=== PATIENT | male | born 1975 | race Caucasian/White ===

== ENCOUNTER 2024-05-17 18:14 | Emergency (ER) | payer OTHER ==
[2024-05-17] MEDS ORDERED: dexAMETHasone 4 MG/ML VIAL ONE (20:23)
[2024-05-17] MEDS ORDERED: KETOROLAC 30 MG/ML INJ ONE (20:23)
[2024-05-17] MEDS ORDERED: DIAZEPAM 5 MG TABLET ONE (20:23)
[2024-05-17] MEDS ORDERED: KETAMINE HCL IN 0.9 % NACL 50 MG/5 ML SYRINGE IV ONE (20:23)
[2024-05-17] MEDS ORDERED: NA CHLORIDE 0.9% 0 ML ONE (20:24)
[2024-05-17] MEDS ORDERED: NA CHLORIDE 0.9% 50 ML ONE (20:24)
[2024-05-17] MEDS ORDERED: NA CHLORIDE 0.9% 250 ML ONE (20:36)
[2024-05-17] MEDS ORDERED: dexAMETHasone 10 MG/ML VIAL ONE (20:40)
--- NOTE | 2024-05-17 21:43 | ER ---
Nurse's Notes [facility] Name: Stephan Carrasco Age: 49 yrs Sex: Male : 1975 Arrival Date: 05/17/2024 Time: 18:14 Bed 2 Private MD: Diagnosis: Back pain Presentation: 05/17 18:17 Chief complaint: EMS states: FELL YESTERDAY HIT HEAD. COMPLAINS OF 8/10 SPINE PAIN THAT db RADIATES ALL OVER HIS BODY PICKED UP FROM [facility] DID NOT AGREE WITH PHYSICIAN THERE. LAW ENFORCEMENT WAS ON SCENE UPON EMS ARRIVAL. EMS GAVE TORADOL 15 MG IV, ZOFRAN 4 MG IV. Coronavirus screen: Client denies travel out of the [place] in the last 14 days. At this time, the client does not indicate any symptoms associated with coronavirus-19. Ebola Screen: Patient negative for fever greater than or equal to 101.5 degrees Fahrenheit, and additional compatible Ebola Virus Disease symptoms Patient denies exposure to infectious person. Patient denies travel to an Ebola-affected area in the 21 days before illness onset. No symptoms or risks identified at this time. Initial Sepsis Screen: Does the patient meet any 2 criteria? No. Patient's initial sepsis screen is negative. Does the patient have a suspected source of infection? No. Patient's initial sepsis screen is negative. Risk Assessment: Do you want to hurt yourself or someone else? Patient reports no desire to harm self or others. Onset of symptoms was May 17, 2024. 18:17 Method Of Arrival: EMS: [facility] db 18:17 Acuity: NITIN 3 db 18:17 Care prior to arrival: Medication(s) given: zofran 4 mg, TORADOL 15 MG IV initiated. 20 db GA, in the left antecubital area. 22:32 Care prior to arrival: None. Mechanism of Injury: hit head on table. Trauma event mt4 details: Injury occurred in the [facility]. Trauma Activation: Physician: ED Physician; Name: WALLACE; Notified At: ; Arrived At: Physician: General Surgeon; Name: ; Notified At: ; Arrived At: Physician: Radiology; Name: ; Notified At: ; Arrived At: Physician: Respiratory; Name: ; Notified At: ; Arrived At: Physician: Lab; Name: ; Notified At: ; Arrived At: Historical: - Allergies: 18:21 Codeine; db - PMHx: 18:22 ARACHNOIDITIS; db - Immunization history:: Adult Immunizations unknown. - Infectious Disease History:: Denies. - Immunization history: Last tetanus immunization: unknown. - Social history:: Smoking status: Patient denies any tobacco usage or history of. Patient/guardian denies using. Screenin:00 [facility] ED Fall Risk Assessment (Adult) History of falling in the last 3 months, mt4 including since admission Yes- single mechanical fall (1 pt) Confusion or Disorientation No (0 pts) Intoxicated or Sedated No (0 pts) Impaired Gait Yes (1 pt) Mobility Assist Device Used No (0 pt) Altered Elimination No (0 pt) Score/Fall Risk Level 3 or more points = High Risk. Abuse screen: Denies injuries from another. Nutritional screening: No deficits noted. Tuberculosis screening: No symptoms or risk factors identified. Exposure risk/Travel Screening: None identified. Primary Survey: 22:31 NO uncontrolled hemorrhage observed. Breathing/Chest: Spontaneous respiratory effort, mt4 equal unlabored respirations, breath sounds clear bilaterally, regular pattern, symmetrical chest rise and fall. Circulation: No external hemorrhage present. Regular and strong central pulse, skin warm/dry/normal color. Disability Pupils are equal, round, reactive to light and accommodation. Client is alert. Exposure/Environment: There is no evidence of uncontrolled external bleeding. No obvious injuries are noted at this time. Reassessment Alertness and Airway: Awake and alert. The airway is patent. Breathing: Respiratory effort Unlabored Breath sounds Clear Respiratory pattern Regular Chest inspection Symmetrical Circulation: No external hemorrhage noted. Regular and strong central pulse, skin warm/dry/normal color. Disability: Pupils Pupils are equal, round, reactive to light and accomodation. Alert. Assessment: 20:40 General: Appears in no apparent distress. Behavior is cooperative. Pain: Complains of mt4 pain in Generalied, back, neck, right toe, head Pain currently is 8 out of 10 on a pain scale. Quality of pain is described as burning, aching, Pain began years ago. Neuro: Level of Consciousness is awake, alert, obeys commands, Oriented to person, place, time, situation, Speech is normal, Facial symmetry appears normal. Cardiovascular: Capillary refill < 3 seconds. Respiratory: No deficits noted. Airway is patent Respiratory effort is even, unlabored. GI: Abdomen is non-distended. : Reports urinary frequency, Denies burning with urination. Musculoskeletal: Capillary refill < 3 seconds, Range of motion: intact in all extremities. 22:27 Neuro:. mt4 22:28 General: Appears in no apparent distress. comfortable, Behavior is calm, cooperative. mt4 Neuro: Level of Consciousness is awake, alert, obeys commands, Oriented to person, place, time, situation. Vital Signs: 18:17 BP 151 / 101; Pulse 84; Resp 16; Pulse Ox 98% ; db 20:00 BP 142 / 103; Pulse 69; Resp 20; Temp 98.3; Pain 8/10; mt4 20:13 Weight 81.65 kg; Height 5 ft. 6 in. ; mt4 21:30 BP 134 / 95; Pulse 67; Resp 16 S; Temp 98.2(O); Pulse Ox 100% on R/A; mt4 20:13 Body Mass Index 29.05 (81.65 kg, 167.64 cm) mt4 20:00 Pain Scale: Adult mt4 [place] Coma Score: 20:00 Eye Response: spontaneous(4). Motor Response: obeys commands(6). Verbal Response: mt4 oriented(5). Total: 15. Trauma Score (Adult): 21:21 Eye Response: spontaneous(1); Verbal Response: oriented(1); Motor Response: obeys mt4 commands(2); Systolic BP: > 89 mm Hg(4); Respiratory Rate: 10 to 29 per min(4); Ines Score: 15; Trauma Score: 12 ED Course: 18:16 Patient arrived in ED. kb3 18:20 Triage completed. db 18:22 Arm band placed on. db 18:23 Noah Wallace DO is Attending Physician. ms3 20:00 No apparent distress. mt4 20:00 Allergy band placed. Fall risk band placed. Call light in reach. Side rails up X 1. mt4 Adult w/ patient. Client placed on continuous cardiac and pulse oximetry monitoring. NIBP monitoring applied. engine monitor on. Pulse ox on. Door closed. Lights dimmed. Warm blanket given. Pillow given. Verbal reassurance given. Head of bed elevated. 20:00 No provider procedures requiring assistance completed. Patient maintains SpO2 mt4 saturation greater than 95% on room air. 20:47 Silva Narayan, RN is Primary Nurse. kd3 21:30 Provided Education on: fall education . mt4 21:30 IV discontinued, bleeding controlled, No redness/swelling at site. Pressure dressing mt4 applied. Patient maintains SpO2 saturation greater than 95% on room air. 22:34 Thermoregulation: warm blanket given to patient. mt4 Administered Medications: 20:50 Drug: Diazepam PO 5 mg PO once Route: PO; mt4 21:50 Follow up: Response: No adverse reaction mt4 20:50 Drug: Sodium Chloride 0.9% IVPB 250 ml IVPB once Route: IVPB; Site: left antecubital; mt4 21:00 Follow up: Response: Adverse reaction, Physician notified; IV Status: Completed mt4 infusion; IV Intake: 250ml 20:52 Drug: Decadron - Dexamethasone IVP 10 mg IVP once Route: IVP; Site: left antecubital; mt4 21:30 Follow up: Response: No adverse reaction mt4 20:52 Drug: Ketorolac IVP 10 mg 10 mg IVP once Route: IVP; Site: left antecubital; mt4 21:30 Follow up: Response: No adverse reaction mt4 21:00 Drug: Ketamine IVP 0.2 mg/kg IVP once; Mix in 50 mL NS IV over 10 minutes. Maximum Dose mt4 10 mg Route: IVP; Site: left antecubital; 21:50 Follow up: Response: No adverse reaction mt4 Medication: 21:30 VIS not applicable for this client. mt4 Intake: 21:00 IV: 250ml; Total: 250ml. mt4 22:33 PO: 30ml (Water); Total: 280ml. mt4 Outcome: 21:30 Condition: stable mt4 21:30 Discharge instructions given to patient, significant other, Instructed on discharge instructions, follow up and referral plans. medication usage, safety practices, Demonstrated understanding of instructions, follow-up care, medications, Prescriptions given X 21:43 Discharge ordered by . ms3 22:33 Discharged to home ambulatory, mt4 22:33 Patient's length of stay in the Emergency Department was greater than 2 hours. mt4 22:35 Patient left the ED. mt4 Signatures: Noah Wallace DO DO ms3 Silva Narayan, RN RN kd3 Marga Ruth, RN RN kb3 Layla Olson, RN RN db Boom Parra, RN RN mt4 Corrections: (The following items were deleted from the chart) 22:28 20:40 Musculoskeletal: Capillary refill < 3 seconds, Range of motion: limited in all mt4 extremities, mt4
--- NOTE | 2024-05-17 21:43 | EDPHYS ---
Physician Documentation [facility] Name: Stephan Carrasco Age: 49 yrs Sex: Male : 1975 Arrival Date: 05/17/2024 Time: 18:14 Bed 2 Private MD: ED Physician Noah Haro HPI: 05/17 20:36 This 49 yrs old Male presents to ER via EMS with complaints of back pain. ms3 20:36 49-year-old male with past medical history of arachnoiditis presents to the emergency ms3 department for severe back pain. Patient states yesterday he hit his head on the doorknob sending off his arachnoiditis.. Historical: - Allergies: 18:21 Codeine; db - PMHx: 18:22 ARACHNOIDITIS; db - Immunization history:: Adult Immunizations unknown. - Infectious Disease History:: Denies. - Immunization history: Last tetanus immunization: unknown. - Social history:: Smoking status: Patient denies any tobacco usage or history of. Patient/guardian denies using. ROS: 20:36 Constitutional: Negative for fever, and chills. Cardiovascular: Negative for chest ms3 pain, and palpitations. Respiratory: Negative for shortness of breath, cough, wheezing, and pleuritic chest pain, Abdomen/GI: Negative for abdominal pain, nausea, vomiting, diarrhea, and constipation, 20:36 MS/extremity: Positive for Back pain, Exam: 20:36 Constitutional: This is a well developed, well nourished patient who is awake, alert, ms3 and in no acute distress. Neck: Trachea midline, no cervical lymphadenopathy. Supple, full range of motion without nuchal rigidity, or vertebral point tenderness. No Meningismus. Chest/axilla: Normal chest wall appearance and motion. Nontender with no deformity. Cardiovascular: Regular rate and rhythm with a normal S1 and S2. No gallops, murmurs, or rubs. Normal PMI, no JVD. No pulse deficits. Respiratory: Lungs have equal breath sounds bilaterally, clear to auscultation and percussion. No rales, rhonchi or wheezes noted. No increased work of breathing, no retractions or nasal flaring. Abdomen/GI: Soft, non-tender, with normal bowel sounds. No distension or tympany. No guarding or rebound. No evidence of tenderness throughout. Skin: Warm, dry with normal turgor. Normal color with no rashes, no lesions, and no evidence of cellulitis. 20:36 Back: pain, that is severe, muscle spasm, is appreciated in the right scapular area, Vital Signs: 18:17 BP 151 / 101; Pulse 84; Resp 16; Pulse Ox 98% ; db 20:00 BP 142 / 103; Pulse 69; Resp 20; Temp 98.3; Pain 8/10; mt4 20:13 Weight 81.65 kg; Height 5 ft. 6 in. ; mt4 21:30 BP 134 / 95; Pulse 67; Resp 16 S; Temp 98.2(O); Pulse Ox 100% on R/A; mt4 20:13 Body Mass Index 29.05 (81.65 kg, 167.64 cm) mt4 20:00 Pain Scale: Adult mt4 [place] Coma Score: 20:00 Eye Response: spontaneous(4). Motor Response: obeys commands(6). Verbal Response: mt4 oriented(5). Total: 15. Trauma Score (Adult): 21:21 Eye Response: spontaneous(1); Verbal Response: oriented(1); Motor Response: obeys mt4 commands(2); Systolic BP: > 89 mm Hg(4); Respiratory Rate: 10 to 29 per min(4); [place] Score: 15; Trauma Score: 12 MDM: 18:47 Patient medically screened. ms3 20:36 Differential diagnosis: contusion, sprain, strain. ms3 21:43 Data reviewed: vital signs, nurses notes, and as a result, I will discharge patient. I ms3 considered the following discharge prescriptions or medication management in the emergency department Medications were administered in the Emergency Department. See MAR. Historians other than the Patient: EMS: [facility]. Counseling: I had a detailed discussion with the patient and/or guardian regarding the historical points, exam findings, and any diagnostic results supporting the discharge/admit diagnosis, the need for outpatient follow up, to return to the emergency department if symptoms worsen or persist or if there are any questions or concerns that arise at home. Special discussion: I discussed with the patient/guardian in detail that at this point there is no indication for admission to the hospital. It is understood, however, that if the symptoms persist or worsen the patient needs to return immediately for re-evaluation. ED course: Patient back pain improved after medications. Patient to follow-up with his pain management physician 2 to 3 days. Patient understands and agrees with plan. All questions were answered. Return precautions discussed include worsening symptoms, or any other concerns. Administered Medications: 20:50 Drug: Diazepam PO 5 mg PO once Route: PO; mt4 21:50 Follow up: Response: No adverse reaction mt4 20:50 Drug: Sodium Chloride 0.9% IVPB 250 ml IVPB once Route: IVPB; Site: left antecubital; mt4 21:00 Follow up: Response: Adverse reaction, Physician notified; IV Status: Completed mt4 infusion; IV Intake: 250ml 20:52 Drug: Decadron - Dexamethasone IVP 10 mg IVP once Route: IVP; Site: left antecubital; mt4 21:30 Follow up: Response: No adverse reaction mt4 20:52 Drug: Ketorolac IVP 10 mg 10 mg IVP once Route: IVP; Site: left antecubital; mt4 21:30 Follow up: Response: No adverse reaction mt4 21:00 Drug: Ketamine IVP 0.2 mg/kg IVP once; Mix in 50 mL NS IV over 10 minutes. Maximum Dose mt4 10 mg Route: IVP; Site: left antecubital; 21:50 Follow up: Response: No adverse reaction mt4 Disposition Summary: 05/17/24 21:43 Discharge Ordered Notes: Location: Home ms3 Condition: Stable ms3 Diagnosis - Back pain ms3 Followup: ms3 - With: Private Physician - When: 2 - 3 days - Reason: Recheck today's complaints Discharge Instructions: - Discharge Summary Sheet ms3 - Acute Back Pain, Adult ms3 Forms: - Medication Reconciliation Form ms3 - Antibiotic Education ms3 - Prescription Opioid Use ms3 - Patient Portal Instructions ms3 - Leadership Thank You Letter ms3 Signatures: Noah Haro DO DO ms3 Layla Olson, RN RN db Boom Parra RN RN mt4
[2024-05-17 22:53] VITALS: BP 134/95; TEMP 98.2; O2SAT 100
== END 2024-05-17 22:35 | disposition home or self-care (01) ==
LOC: ER 18:14
DX: M54.9 Dorsalgia, unspecified (principal)
CPT/HCPCS: 96375; 96374; 99285; J1100; J7050

== ENCOUNTER 2024-10-14 04:19 | Emergency (ER) | payer OTHER ==
[2024-10-14] MEDS ORDERED: KETAMINE HCL IN 0.9 % NACL 50 MG/5 ML SYRINGE IV ONE (05:28)
[2024-10-14] MEDS ORDERED: dexAMETHasone 10 MG/ML VIAL ONE (05:29)
[2024-10-14] MEDS ORDERED: KETOROLAC 30 MG/ML INJ ONE (05:29)
[2024-10-14] MEDS ORDERED: NA CHLORIDE 0.9% 50 ML ONE (05:30)
[2024-10-14] MEDS ORDERED: DIAZEPAM 5 MG TABLET ONE ×2 (05:30→06:47)
[2024-10-14] MEDS ORDERED: ONDANSETRON 4 MG/2 ML VIAL ONE (05:45)
--- NOTE | 2024-10-14 06:16 | EDPHYS ---
Physician Documentation [facility] Name: Stephan Carrasco Age: 49 yrs Sex: Male : 1975 Arrival Date: 10/14/2024 Time: 04:19 Bed 19 Private MD: ED Physician Noah Haro HPI: 10/14 05:22 This 49 yrs old Male presents to ER via Wheelchair with complaints of Back Injury. ms3 05:22 Stephan Carrasco is a 49-year-old male presenting to the Emergency Department for back pain ms3 that he rates an 8/10. Patient states he missed a step getting into bed yesterday and his back has begun hurting. He has a past medical history significant for arachnoiditis. He reports not taking any pain medications currently. His condition has made it difficult for him to work, and he has taken some time off recently. He does not report any issues with incontinence or anesthesia in the groin area. . Historical: - Allergies: 04:46 Codeine; lg3 - Home Meds: 04:46 None [Active]; lg3 - PMHx: 04:46 arachnoiditis; lg3 - PSHx: 04:46 spinal cord stimulator (arachnoiditis ); bariatric sleeve (arachnoiditis ); lg3 Appendectomy; Cholecystectomy; right knee; liver biopsy; left shoulder; umbilical hernia; - Immunization history:: Adult Immunizations up to date. - Infectious Disease History:: Denies. - Social history:: Smoking status: Patient denies any tobacco usage or history of. Patient uses street drugs, CBD, THC, HEMP, Patient/guardian denies using alcohol. ROS: 05:22 Constitutional: Negative for fever, and chills. Cardiovascular: Negative for chest ms3 pain, and palpitations. Respiratory: Negative for shortness of breath, cough, wheezing, and pleuritic chest pain, Abdomen/GI: Negative for abdominal pain, nausea, vomiting, diarrhea, and constipation, 05:22 Back: Positive for back pain, Exam: 05:22 Constitutional: This is a well developed, well nourished patient who is awake, alert, ms3 and in no acute distress. Cardiovascular: Regular rate and rhythm with a normal S1 and S2. No gallops, murmurs, or rubs. Normal PMI, no JVD. No pulse deficits. Respiratory: Lungs have equal breath sounds bilaterally, clear to auscultation and percussion. No rales, rhonchi or wheezes noted. No increased work of breathing, no retractions or nasal flaring. Abdomen/GI: Soft, non-tender, with normal bowel sounds. No distension or tympany. No guarding or rebound. No evidence of tenderness throughout. MS/ Extremity: Pulses equal, no cyanosis. Neurovascular intact. Full, normal range of motion. Vital Signs: 04:40 BP 124 / 92; Pulse 92; Resp 17 S; Temp 97.4(O); Pulse Ox 98% on R/A; Weight 79.38 kg lg3 (R); Height 5 ft. 5 in. (R); Pain 8/10; 04:51 BP 110 / 78; Pulse 88; Resp 17 S; Pulse Ox 99% on R/A; lg3 06:00 BP 128 / 93; Pulse 78; Resp 20; Pulse Ox 93% ; ay 04:40 Body Mass Index 29.12 (79.38 kg, 165.1 cm) lg3 04:40 Pain Scale: Adult lg3 MDM: 04:57 Medical Screening Exam initiated ms3 05:22 Differential diagnosis: arthritis, sprain. ms3 06:43 Data reviewed: vital signs, nurses notes, and as a result, I will discharge patient. I ms3 considered the following discharge prescriptions or medication management in the emergency department Medications were administered in the Emergency Department. See MAR. Historians other than the Patient: Patient's fiancee. Counseling: I had a detailed discussion with the patient and/or guardian regarding the historical points, exam findings, and any diagnostic results supporting the discharge/admit diagnosis, the need for outpatient follow up, to return to the emergency department if symptoms worsen or persist or if there are any questions or concerns that arise at home. Special discussion: I discussed with the patient/guardian in detail that at this point there is no indication for admission to the hospital. It is understood, however, that if the symptoms persist or worsen the patient needs to return immediately for re-evaluation. ED course: Patient complaining of lower extremity spasticity. Patient given additional 5 mg Valium. Patient states he has an appointment with his pain management physician today. Patient to follow-up with pain management as scheduled. All questions were answered. Return precautions discussed include worsening symptoms, or any other concerns. Patient is without saddle anesthesia, lower extremity weakness, urinary or bowel incontinence or retention.. Administered Medications: 06:05 Drug: Ketamine IVP 0.2 mg/kg IVP once; Mix in 50 mL NS IV over 10 minutes. Maximum Dose ay 10 mg Route: IVP; Site: left antecubital; 06:54 Follow up: Response: No adverse reaction ay 06:06 Drug: Diazepam PO 5 mg PO once Route: PO; ay 06:55 Follow up: Response: No adverse reaction ay 06:06 Drug: Decadron - Dexamethasone IVP 10 mg IVP once Route: IVP; Site: left antecubital; ay 06:55 Follow up: Response: No adverse reaction ay 06:06 Drug: Ketorolac IVP 10 mg 10 mg IVP once Route: IVP; Site: left antecubital; ay 06:54 Follow up: Response: No adverse reaction ay 06:08 Drug: Ondansetron IVP 4 mg IVP once; over 2 minutes Route: IVP; Site: left antecubital; ay 06:54 Follow up: Response: No adverse reaction ay 06:53 Drug: Diazepam PO 5 mg PO once Route: PO; ay 06:54 Follow up: Response: Medication administered at discharge. ay Disposition Summary: 10/14/24 06:15 Discharge Ordered Notes: Location: Home ms3 Condition: Stable ms3 Diagnosis - Back pain ms3 Followup: ms3 - With: Tirso Guajardo DO - When: 2 - 3 days - Reason: Recheck today's complaints Discharge Instructions: - Discharge Summary Sheet ms3 - Acute Back Pain, Adult ms3 Forms: - Medication Reconciliation Form ms3 - Antibiotic Education ms3 - Prescription Opioid Use ms3 - Patient Portal Instructions ms3 - Leadership Thank You Letter ms3 Signatures: Ignacia Joseph RN DEJAH lg3 Noah Haro DO DO ms3 Dandy Jaquez RN RN ay
--- NOTE | 2024-10-14 06:16 | ER ---
Nurse's Notes [facility] Name: Stephan Carrasco Age: 49 yrs Sex: Male : 1975 Arrival Date: 10/14/2024 Time: 04:19 Bed 19 Private MD: Diagnosis: Back pain Presentation: 10/14 04:40 Chief complaint: Patient states: spinal cord injury in 2012. minimal ambulation at lg3 baseline. when getting into bed at 1300 yesterday i had a mis-step and since then im having constipation, my body is locking up, i have no appetite, blurry vision, and my toes are turning color if i put pressure on them. Coronavirus screen: Client denies travel out of the [place] in the last 14 days. At this time, the client does not indicate any symptoms associated with coronavirus-19. Ebola Screen: No symptoms or risks identified at this time. Initial Sepsis Screen: Does the patient meet any 2 criteria? No. Patient's initial sepsis screen is negative. Does the patient have a suspected source of infection? No. Patient's initial sepsis screen is negative. Risk Assessment: Do you want to hurt yourself or someone else? Patient reports no desire to harm self or others. Onset of symptoms was October 13, 2024. 04:40 Method Of Arrival: Wheelchair lg3 04:40 Acuity: NITIN 3 lg3 Triage Assessment: 04:46 General: Appears in no apparent distress. uncomfortable, Behavior is calm, cooperative. lg3 Pain: Complains of pain in pelvis. EENT: No deficits noted. No signs and/or symptoms were reported regarding the EENT system. Neuro: No deficits noted. Coyle Agitation-Sedation Scale (RASS): 0 - Alert and Calm Level of Consciousness is awake, alert, obeys commands, Oriented to person, place, time, situation. Cardiovascular: No deficits noted. Denies chest pain, shortness of breath, Capillary refill < 3 seconds Clubbing of nail beds is absent JVD is absent Patient's skin is warm and dry. Respiratory: No deficits noted. Airway is patent Respiratory effort is even, unlabored, Respiratory pattern is regular, symmetrical. GI: No deficits noted. Reports constipation. : No signs and/or symptoms were reported regarding the genitourinary system. Derm: No deficits noted. No signs and/or symptoms reported regarding the dermatologic system. Skin is intact, is healthy with good turgor, Skin is dry, Skin is normal, Skin temperature is warm. Musculoskeletal: Circulation, motion, and sensation intact. Historical: - Allergies: 04:46 Codeine; lg3 - Home Meds: 04:46 None [Active]; lg3 - PMHx: 04:46 arachnoiditis; lg3 - PSHx: 04:46 spinal cord stimulator (arachnoiditis ); bariatric sleeve (arachnoiditis ); lg3 Appendectomy; Cholecystectomy; right knee; liver biopsy; left shoulder; umbilical hernia; - Immunization history:: Adult Immunizations up to date. - Infectious Disease History:: Denies. - Social history:: Smoking status: Patient denies any tobacco usage or history of. Patient uses street drugs, CBD, THC, HEMP, Patient/guardian denies using alcohol. Screenin:51 [facility] ED Fall Risk Assessment (Adult) History of falling in the last 3 months, lg3 including since admission No falls in past 3 months (0 pts) Confusion or Disorientation No (0 pts) Intoxicated or Sedated No (0 pts) Impaired Gait Yes (1 pt) Mobility Assist Device Used Yes (1 pt) Altered Elimination No (0 pt) Score/Fall Risk Level 3 or more points = High Risk Oriented to surroundings, Maintained a safe environment, Educated pt \T\ family on fall prevention, incl call for assistance when getting out of bed, Assessed \T\ reinforced patient's understanding of fall precautions. Abuse screen: Denies threats or abuse. Denies injuries from another. Nutritional screening: No deficits noted. Tuberculosis screening: No symptoms or risk factors identified. Assessment: 04:51 General: see triage assessment. lg3 Vital Signs: 04:40 BP 124 / 92; Pulse 92; Resp 17 S; Temp 97.4(O); Pulse Ox 98% on R/A; Weight 79.38 kg lg3 (R); Height 5 ft. 5 in. (R); Pain 8/10; 04:51 BP 110 / 78; Pulse 88; Resp 17 S; Pulse Ox 99% on R/A; lg3 06:00 BP 128 / 93; Pulse 78; Resp 20; Pulse Ox 93% ; ay 04:40 Body Mass Index 29.12 (79.38 kg, 165.1 cm) lg3 04:40 Pain Scale: Adult lg3 ED Course: 04:20 Patient arrived in ED. [email or web address] 04:21 Noah Haro DO is Attending Physician. ms3 04:46 Triage completed. lg3 04:46 Arm band placed on right wrist. lg3 04:51 Patient has correct armband on for positive identification. Family accompanied patient. lg3 05:16 Inserted saline lock: 20 gauge in left antecubital area, using aseptic technique. Blood vk collected. Flushed with 10 mL NS. 05:18 Dandy Jaquez RN is Primary Nurse. ay 06:15 Tirso Guajardo DO is Referral Physician. ms3 06:55 IV discontinued, intact, bleeding controlled, No redness/swelling at site. Pressure ay dressing applied. Administered Medications: 06:05 Drug: Ketamine IVP 0.2 mg/kg IVP once; Mix in 50 mL NS IV over 10 minutes. Maximum Dose ay 10 mg Route: IVP; Site: left antecubital; 06:54 Follow up: Response: No adverse reaction ay 06:06 Drug: Diazepam PO 5 mg PO once Route: PO; ay 06:55 Follow up: Response: No adverse reaction ay 06:06 Drug: Decadron - Dexamethasone IVP 10 mg IVP once Route: IVP; Site: left antecubital; ay 06:55 Follow up: Response: No adverse reaction ay 06:06 Drug: Ketorolac IVP 10 mg 10 mg IVP once Route: IVP; Site: left antecubital; ay 06:54 Follow up: Response: No adverse reaction ay 06:08 Drug: Ondansetron IVP 4 mg IVP once; over 2 minutes Route: IVP; Site: left antecubital; ay 06:54 Follow up: Response: No adverse reaction ay 06:53 Drug: Diazepam PO 5 mg PO once Route: PO; ay 06:54 Follow up: Response: Medication administered at discharge. ay Outcome: 06:15 Discharge ordered by . ms3 06:55 Discharged to home ay 06:55 Condition: stable 06:55 Discharge instructions given to patient, Instructed on discharge instructions, follow up and referral plans. Demonstrated understanding of instructions, follow-up care, 06:56 Patient left the ED. ay Signatures: Ignacia Joseph RN RN lg3 Noah Haro DO DO ms3 Mica Owens [email or web address] Cheli Hall Awudu, RN RN ay
[2024-10-14 10:13] VITALS: TEMP 97.4
[2024-10-14 10:24] VITALS: BP 128/93; O2SAT 93
== END 2024-10-14 06:56 | disposition home or self-care (01) ==
LOC: ER 04:19
DX: M54.9 Dorsalgia, unspecified (principal)
CPT/HCPCS: J1100; J2405; 96374; 96375; 99284